=== PATIENT | female | born 1955 | race Caucasian/White ===

== ENCOUNTER 2018-11-07 14:06 | Emergency (ER) | payer SELFPAY ==
[2018-11-07 14:42] VITALS: BP 149/86
--- NOTE | 2018-11-07 15:34 | UC ---
Upper Extremity HPI - HPI Summary HPI Summary: 63 yo female presents with left chest wall pain. She tells me that yesterday she was carrying her grandchild and tripped forward. She landed on her left chest and arm. Her arm feels fine, but since that time has had pain in her left chest wall that is worse with movement of the left shoulder and with deep breaths/coughing. She has not taken anything OTC for her discomfort. Denies SOB , cardiac chest pain. - History of Current Complaint Chief Complaint: UCTrauma Stated Complaint: RIB/BREAST PAIN Time Seen by Provider: 11/07/18 15:34 Hx Obtained From: Patient Onset/Duration: Sudden Onset Severity Initially: Severe Severity Currently: Severe Pain Intensity: 8 Pain Scale Used: 0-10 Numeric - Allergies/Home Medications Allergies/Adverse Reactions: Allergies Allergy/AdvReac Type Severity Reaction Status Date / Time codeine Allergy Intermediate Itching Verified 11/07/18 14:43 Penicillins Allergy Intermediate Hives Verified 11/07/18 14:43 Home Medications: Home Medications Irbesartan/Hydrochlorothiazide [Irbesartan/Hydrochlorothi 150-12.5 mg] 1 tab PO DAILY WITH MEAL 11/07/18 [History Confirmed 11/07/18] Nebivolol TAB (NF) [Bystolic TAB (NF)] 5 mg PO DAILY 11/07/18 [History Confirmed 11/07/18] PMH/Surg Hx/FS Hx/Imm Hx Cardiovascular History: Hypertension - Surgical History Surgical History: Yes Surgery Procedure, Year, and Place: 3 c section. right knee. d&C - Family History Known Family History: Positive: Hypertension - Social History Lives: With Family Alcohol Use: None Substance Use Type: None Smoking Status (MU): Never Smoked Tobacco Review of Systems All Other Systems Reviewed And Are Negative: Yes Constitutional: Positive: Negative Skin: Positive: Negative Respiratory: Positive: Negative Cardiovascular: Positive: Negative Neurovascular: Positive: Negative Musculoskeletal: Positive: Other: - left chest wall pain Neurological: Positive: Negative Psychological: Positive: Negative Physical Exam - Summary Physical Exam Summary: GENERAL: NAD. WDWN. No pain distress. SKIN: No rashes, sores, lesions, or open wounds. NECK: Supple. Nontender. No lymphadenopathy. CHEST: CTAB. No r/r/w. No accessory muscle use. Breathing comfortably and in no distress. CV: RRR. Without m/r/g. Pulses intact. Cap refill <2seconds MSK: Anterior chest wall: juts anatomical left of the sternum there is TTP along the ribs. No ecchymosis or open wound. TTP along pec major. Pain reproduced with left shoulder flexion and adduction. NEURO: Alert. PSYCH: Age appropriate behavior. Triage Information Reviewed: Yes Vital Signs: Initial Vital Signs Temp 98.3 F 11/07/18 14:37 Pulse 75 11/07/18 14:37 Resp 18 11/07/18 14:37 BP 149/86 11/07/18 14:37 Pulse Ox 98 11/07/18 14:37 Vital Signs Reviewed: Yes Upper Extremity Course/Dx - Course Course Of Treatment: XR: IMPRESSION: Unremarkable chest. Suspect muscle strain of chest wall. Advised to rest and apply ice/heat to the area and take tylenol/ibuprofen as directed for discomfort. - Differential Dx/Diagnosis Provider Diagnosis: Chest wall muscle strain Discharge - Sign-Out/Discharge Documenting (check all that apply): Patient Departure All imaging exams completed and their final reports reviewed: Yes - Discharge Plan Condition: Stable Disposition: HOME Patient Education Materials: Muscle Strain (DC) Referrals: No Primary Care Phys,NOPCP [Primary Care Provider] - Additional Instructions: If you develop a fever, shortness of breath, chest pain, new or worsening symptoms - please call your PCP or go to the ED immediately. Your blood pressure was high at todays visit. Please see your primary provider within 4 weeks for recheck and re-evaluation. Your X-Ray did not show any rib fractures today. I suspect your pain is likely due to a muscle strain from your fall. May try taking ibuprofen/tylenol over the counter as directed and applying heat/ice to the area to decrease pain. If you notice bruising, swelling, redness, or increased pain to your breast or the surrounding skin - please be rechecked. - Billing Disposition and Condition Condition: STABLE Disposition: Home
== END 2018-11-07 16:07 | disposition home or self-care (01) ==
LOC: UCEAST 14:06
DX: S29.011A Strain of muscle and tendon of front wall of thorax, initial encounter (principal); W01.0XXA Fall on same level from slipping, tripping and stumbling without subsequent striking against object, initial encounter; Y92.9 Unspecified place or not applicable; I10 Essential (primary) hypertension; Z88.5 Allergy status to narcotic agent; Z88.0 Allergy status to penicillin
CPT/HCPCS: 71045; 99201; G0463